=== PATIENT | female | born 1990 | race African-American/Black ===

== ENCOUNTER 2017-07-29 22:45 | Emergency (ER) | payer OTHER ==
[~2017-07-29] VITALS: Ht 157.5 cm; Wt 61.2 kg
[2017-07-29] MEDS ORDERED: LORAZEPAM INJ 2 MG/ML VIAL IM ONE (23:00)
--- NOTE | 2017-07-29 23:00 | NUR ---
PT JOSE FROM HOME. CALLED 911 AND C/O SHORTNESS OF BREATH S/P ADMITS TO SNORTING METH. PTY IS SPEAKING IN FULL SENTENCES AND SATTING 100% ON RA. TACHY ON MONITOR. AWAITING MD BALDERAS.
[2017-07-29] MEDS ORDERED: LORAZEPAM INJ 2 MG/ML VIAL ONE (23:01)
--- NOTE | 2017-07-29 23:08 | NUR ---
MEDICATED ORDERED. SEE EMAR.
--- NOTE | 2017-07-29 23:36 | NUR ---
REPORT TO CHARGE NURSE CARLOS FOR [facility]UDWIN.
--- NOTE | 2017-07-30 01:00 | NUR ---
Patient is resting comfortably in bed with eyes closed. Easily aroused. VSS
--- NOTE | 2017-07-30 03:00 | NUR ---
Patient is resting comfortably in bed with eyes closed. Easily aroused. VSS
--- NOTE | 2017-07-30 05:46 | NUR ---
Patient discharged to home in stable condition. Written and verbal after care instructions given. Patient verbalizes understanding of instruction. Pt ambulatory with a steady gait to waiting room to wait for Uber. VSS, NAD noted on DC. Denies complaint on DC.
[2017-07-30 05:48] VITALS: BP 127/77
== END 2017-07-30 05:48 | disposition home or self-care (01) ==
LOC: ER 22:46
DX: F41.9 Anxiety disorder, unspecified (principal); F15.10 Other stimulant abuse, uncomplicated
CPT/HCPCS: A4606; J2060; Z7610

== ENCOUNTER 2018-08-20 02:16 | Emergency (ER) | payer MEDICAID, OTHER ==
[~2018-08-20] VITALS: Ht 157.5 cm; Wt 57.2 kg
--- NOTE | 2018-08-20 02:25 | NUR ---
Pt BIBSELF FROM HOME C/O ANXIETY WITH CHEST TIGHTNESS. Pt IS A/O3, VERBAL, ABLE TO MAKE NEEDS KNOWN. NO S/S OF ACUTE DISTRESS OR SOB NOTED. Pt ALREADY SEEN BY MD AT BEDSIDE. Pt DENIES -N/-V/-D. DENIES SOB. Pt IS AFEBRILE. VS STABLE. WILL CONTINUE TO MONITOR Pt's CONDITION.
[2018-08-20] MEDS ORDERED: LORAZEPAM 1 MG TABLET ONE (02:28)
[2018-08-20] MEDS: LORAZEPAM 1 MG TABLET PO ONE (02:31)
--- NOTE | 2018-08-20 02:35 | NUR ---
ALL ORDERED MEDS GIVEN
--- NOTE | 2018-08-20 04:25 | NUR ---
DISCHARGE PAPERS SIGNED & EXPLAINED. PRESCRIPTION GIVEN TO Pt. Pt STATES SHE IS TOO SLEEPY TO WALK OUTSIDE. LETTING Pt REST IN BED FOR NOW. VS STABLE. NO S/S OF ACUTE DISTRESS OR SOB NOTED.
--- NOTE | 2018-08-20 05:24 | NUR ---
Patient discharged to home in stable condition. Written and verbal after care instructions given. Patient verbalizes understanding of instruction. Patient left on foot with steady gait, boyfriend at bedside. No s/s of acute distress or sob noted. VS stable.
[2018-08-20 05:26] VITALS: BP 110/65
== END 2018-08-20 05:28 | disposition home or self-care (01) ==
LOC: ER 02:18
DX: F41.9 Anxiety disorder, unspecified (principal); R00.2 Palpitations; Z98.890 Other specified postprocedural states

== ENCOUNTER 2019-02-13 18:55 | Emergency (ER) | payer SELFPAY ==
[~2019-02-13] VITALS: Ht 152.4 cm; Wt 55.3 kg
[2019-02-13 19:03] VITALS: BP 106/71
[2019-02-13] MEDS ORDERED: KETOROLAC TROMETHAMINE INJ 30 MG/ML VIAL ONE (19:15)
--- NOTE | 2019-02-13 19:24 | NUR ---
Patient discharged to home in stable condition. Written and verbal after care instructions given. Patient verbalizes understanding of instruction. Pt ambulatory with a steady gait
[2019-02-13] MEDS ORDERED: KETOROLAC TROMETHAMINE INJ 60 MG/2 ML VIAL IM ONE (19:30)
== END 2019-02-13 19:25 | disposition home or self-care (01) ==
LOC: ER 18:59
DX: M79.652 Pain in left thigh (principal); M79.651 Pain in right thigh; F41.9 Anxiety disorder, unspecified; Z98.890 Other specified postprocedural states
CPT/HCPCS: 99283; J1885

== ENCOUNTER 2020-12-14 01:20 | Emergency (ER) | payer OTHER ==
[~2020-12-14] VITALS: Ht 157.5 cm; Wt 54.4 kg
[2020-12-14 01:25] VITALS: BP 129/88
[2020-12-14] MEDS ORDERED: LORAZEPAM 0.5 MG TABLET PO ONE (02:00)
[2020-12-14] MEDS ORDERED: LORAZEPAM 0.5 MG TABLET ONE (02:22)
--- NOTE | 2020-12-14 03:17 | NUR ---
URINE COLLECTED AND SENT TO LAB
== END 2020-12-14 04:30 | disposition home or self-care (01) ==
LOC: ER 01:21
DX: F41.9 Anxiety disorder, unspecified (principal); F10.10 Alcohol abuse, uncomplicated; Y90.9 Presence of alcohol in blood, level not specified; Z71.1 Person with feared health complaint in whom no diagnosis is made; Z98.890 Other specified postprocedural states